=== PATIENT | male | born 1950 | race Caucasian/White ===

== ENCOUNTER → 2021-02-20 | Outpatient (CLI) | payer MEDICARE, OTHER ==
[~2021-02-20] MED LIST: ASCO60LO PO; BISA5TAB4 PO; MULT-690 PO; TELM1TAB PO; VIT1CAPS12 PO
== END ==
LOC: LAB 11:26
PROVIDERS: ATTEND Nurse Anesthetist, Certified Registered
DX: Z01.812 Encounter for preprocedural laboratory examination (principal); K59.00 Constipation, unspecified; Z20.822 Contact with and (suspected) exposure to COVID-19
CPT/HCPCS: U0003

== ENCOUNTER → 2021-02-24 | Day surgery (SDC) | payer MEDICARE, OTHER ==
[~2021-02-24] MED LIST changes: +GLYCOPYRROLATE 1 MG/5 ML VIAL. ONE; +IPRATRPIUM/ALBUTEROL 0.5/2.5MG 3 ML NEBU. NEB PRN; +IV RINGERS SOLUTION,LACTATED 1,000 ML IV SCH; +KETAMINE HCL IN NACL, ISO-OSM 50 MG/5 ML SYRINGE ONE; +LIDOCAINE 2% PF 5 ML VIAL. ONE; +MIDAZOLAM HCL PF 2 MG/2 ML VIAL. IV ONE; +ONDANSETRON PF 4 MG/2 ML VIAL. IV PRN; +PROPOFOL 10,000 MCG/ML (20ML) VIAL IV ONE
[2021-02-24 08:32] VITALS: BP 120/65
--- NOTE | 2021-02-24 11:26 | EKG ---
[address] [address] Test Date: 2021-02-24 Test Time: 06:54:34 Pat Name: NABEEL ROSALES Department: Room: Gender: M Seo Strategist: TIMOTHY : 1950 Requested By: URBAN SUMNER Order Number: [id number] Reading MD: Measurements Intervals [place] Rate: 113 P: 90 ID: [id number] QRS: -37 QRSD: 108 T: 21 QT: 336 QTc: 467 Interpretive Statements SINUS TACHYCARDIA ATRIAL PREMATURE COMPLEX(ES) ABNORMAL LEFT AXIS DEVIATION LEFT ANTERIOR FASCICULAR BLOCK INCOMPLETE RIGHT BUNDLE BRANCH BLOCK ABNORMAL ECG RI6.02 No previous ECG available for comparison
--- NOTE | 2021-02-27 14:11 | PATHOLOGY ---
[facility] Accession Number: [id number] . 01 Material submitted: . hepatic flexure - HEPATIC FLEXURE POLYP X2 . 01 Clinical history: . COLONOSCOPY HX POLYPS CONSTIPATION . 02 Diagnosis: Colon biopsies, hepatic flexure polyp x2: - Tubular adenoma. - Hyperplastic polyp. (JPM:[place]; 02/27/2021) S 02/27/2021 0855 Local . 02 Comment: There is no high grade dysplasia or evidence of malignancy. (JPM:[place]; 02/27/2021) . 02 Electronically signed: . Johnathan Beyer MD, Pathologist NPI- [id number] . 01 Gross description: . The specimen is received in formalin, labeled "Silvino Moreno Jr", "hepatic flexure polyp x2". Received are 2 segments of pale tellez soft tissue measuring 0.2 and 0.3 cm. The specimen is entirely submitted in cassette A1.([facility]; 02/26/2021) KATIE/OBDULIA 02/26/2021 0837 Local . 02 Pathologist provided ICD-10: D12.3, K63.5 . 02 CPT . 773030 Specimen Comment: A courtesy copy of this report has been sent to [phone] Specimen Comment: Report sent to Performed at: 01 [facility] [address], [place] [id number] MD Cristi Ortiz MD Phone: [phone] Performed at: 02 [facility] [place] [address] [place], [place] [id number] MD Johnathan Beyer MD Phone: [phone]
== END | disposition home or self-care (01) ==
LOC: SURG 06:27
PROVIDERS: ATTEND Internal Medicine Gastroenterology
DX: K59.00 Constipation, unspecified (principal); D12.3 Benign neoplasm of transverse colon; K63.89 Other specified diseases of intestine; K57.30 Diverticulosis of large intestine without perforation or abscess without bleeding; I10 Essential (primary) hypertension; Z83.71 Family history of colonic polyps; Z86.010 Personal history of colon polyps; Z79.899 Other long term (current) drug therapy
CPT/HCPCS: 45385; 88305; 93005; J2001; J2704; J3490; J7120